=== PATIENT | male | born 1945 | race Hispanic/Latino ===

== ENCOUNTER → 2018-11-12 | Day surgery (SDC) | payer MEDICARE ==
[2018-11-11 12:34] LABS: BASOPHILS # (AUTO) 0.1 (0.0-0.1); BASOPHILS % 0.8 % (0.0-1.0); EOSINOPHILS # (AUTO) 0.2 (0.0-0.4); HEMOGLOBIN 13.3 g/dL (14.0-18.0); LYMPHOCYTES # (AUTO) 2.4 (1.0-3.2); MEAN CORPUSCULAR HEMOGLOBIN 29.2 pg (28-32); MEAN CORPUSCULAR HGB CONC 34.1 g/dL (31-35); MEAN CORPUSCULAR VOLUME 85.7 fL (81-99); MONOCYTES # (AUTO) 0.6 (0.2-0.8); MONOCYTES % 7.2 % (4.4-11.3); NEUTROPHILS # (AUTO) 4.3 (2.1-6.9); NEUTROPHILS % 56.7 % (38.7-80.0); PLATELET COUNT 217 x10e3/uL (140-360); RED BLOOD COUNT 4.55 x10e6/uL (4.3-5.7); RED CELL DISTRIBUTION WIDTH 13.5 % (11.7-14.4)
[2018-11-11 12:51] LABS: ANION GAP 11.4 mmol/L (8-16); CREATININE, SERUM 1.84 mg/dL (0.72-1.25); POTASSIUM 4.4 mmol/L (3.5-5.1)
[~2018-11-12] MED LIST: AMLODIPINE BESYL5 MG PO; CLOPIDOGREL75 MG PO; CRESTOR10 MG PO; FUROSEMIDE40 MG PO; ISOSORBIDE DINI20 MG PO; JANUVIA100 MG PO; LEVOTHYROXINE75 MCG PO; LISINOPRIL10 MG PO; METOPROLOL SUCC25 MG PO; MIDAZOLAM HCL 2 MG/2 ML VIAL ONE; NEXIUM40 MG PO; NOVOLOG100 UNITS1 SQ; PROPOFOL IV EMULSION 10 MG/ML 50 ML VIAL ONE; TRESIBA SQ
--- OUTSIDE RECORDS SUMMARY | 2018-11-12 05:31 | XMS REPORT ---
Author Author ANGELITA MOORE Organization [employer] Address Unknown Phone Unavailable Care Team Providers Care Cleaner Signs Name Role Phone ANGELITA MOORE CP Unavailable Allergies No Known Allergies Problems No Known Problems Medications No Known Medications Results No Known Results Summary Purpose [employer] Submission
--- OUTSIDE RECORDS SUMMARY | 2018-11-12 05:31 | XMS REPORT | Continuity of Care Document ---
Author Author [facility] Interface Address Unknown Phone Unavailable Problems Problem Status Onset Date Classification Date Reported Comments Source THYROID CANCER, SIP THYROIDECTOMY PHYS Active 02/16/2017 [facility] UNK Active 07/08/2016 [facility] POST TOTAL THYROIDECTOMY Active 07/08/2016 [facility] Stroke Resolved Problem 02/13/2018 [facility] Diabetes Resolved Problem 02/13/2018 [facility] Acid reflux Active Problem 02/13/2018 [facility] Hypertension Active Problem 02/13/2018 [facility] MALIGNANT NEOPLASM OF THYROID GLAND Active [facility] Medications Medication Details Route Status Patient Instructions Ordering Provider Order Date Source Insulin Glargine 100 UNT/ML Injectable Solution [Lantus] 25 unit, Route: SUB-Q, Drug form: SOLN, QAM, Dosing Weight 96.082, kg, Start date: 07/25/16 9:00:00 CASH RECONCILIATION SPECIALIST, Duration: 30 day, Stop date: 08/23/16 9:00:00 CASH RECONCILIATION SPECIALIST No Longer Active 07/25/2016 [facility] Benzocaine 0.2 MG/MG Oral Paste [Orabase] 1 appl, Route: TOP, BID, Start date: 07/24/16 17:00:00 CASH RECONCILIATION SPECIALIST, Duration: 30 day, Stop date: 08/23/16 9:00:00 CASH RECONCILIATION SPECIALIST Inactive 07/24/2016 [facility] Levemir FlexPen 8 unit, 0.08 mL, Route: SUB-Q, Drug form: INJ, QPM, Start date: 07/24/16 17:00:00 CASH RECONCILIATION SPECIALIST, Duration: 30 day, Stop date: 08/22/16 17:00:00 CSTNotes: Same as Levemir Do not hold insulin without contacting prescriber WASTE: F/P - Black; E - Municipal Trash Bin "single patient use only" Inactive 07/24/2016 [facility] Insulin Glargine 100 UNT/ML Injectable Solution [Lantus] 8 unit, Route: SUB-Q, QPM, Dosing Weight 96.082, kg, Start date: 07/24/16 17:00:00 CASH RECONCILIATION SPECIALIST, Duration: 30 day, Stop date: 08/22/16 17:00:00 CASH RECONCILIATION SPECIALIST Inactive 07/24/2016 [facility] benzocaine topical 10% mucous membrane gel 1 appl, Route: MUCOUS MEM, BID, Drug form: GEL, Start date: 07/24/16 11:04:00 CASH RECONCILIATION SPECIALIST, Duration: 30 day, Stop date: 08/23/16 9:00:00 CSTNotes: (Same As: Maximum Strength PM Orajel ) Inactive 07/24/2016 [facility] Levemir FlexPen 25 unit, 0.25 mL, Route: SUB-Q, Drug form: INJ, QAM, Start date: 07/24/16 10:00:00 CASH RECONCILIATION SPECIALIST, Duration: 30 day, Stop date: 08/23/16 9:00:00 CSTNotes: Same as Levemir Do not hold insulin without contacting prescriber WASTE: F/P - Black; E - Ever[employer]h Bin "single patient use only" Inactive 07/24/2016 [facility] Enoxaparin 40 mg, 0.4 mL, Route: SUB-Q, Drug form: INJ, [id number], Dosing Weight 96.082, kg, Start date: 07/24/16 10:00:00 CASH RECONCILIATION SPECIALIST, Duration: 30 day, Stop date: 08/22/16 10:00:00 CSTNotes: (Same as: Lovenox) Inactive 07/24/2016 [facility] Acetaminophen 300 MG / Codeine Phosphate 30 MG Oral Tablet [Tylenol with Codeine #3] 1 tab, PO, Q4H, PRN Pain Score 1-3, # 40 tab, 0 Refill(s) Active 07/24/2016 [facility] Magnesium Oxide 400 mg, 1 tab, Route: PO, Drug form: TAB, ONCE, Dosing Weight 96.082, kg, Start date: 07/24/16 9:04:00 CASH RECONCILIATION SPECIALIST, Stop date: 07/24/16 9:04:00 CSTNotes: (Same as: Mag-Ox 400) Magnesium oxide [id number] tamanna mental magnesium Dose=____mg magnesium oxide (___mg elemental magnesium) Inactive 07/24/2016 [facility] 24 HR Metoprolol Tartrate 25 MG Extended Release Tablet [Toprol] 25 mg, 1 tab, Route: PO, Drug form: ERTAB, Daily, Start date: 07/24/16 9:00:00 CASH RECONCILIATION SPECIALIST, Duration: 30 day, Stop date: 08/22/16 9:00:00 CSTNotes: (Same as: Toprol XL) Do Not Crush Inactive 07/24/2016 [facility] influenza virus vaccine, inactivated 0.5 mL, Route: IM, Drug Form: SUSP, Daily, Start date: 07/24/16 9:00:00 CASH RECONCILIATION SPECIALIST, Duration: 1 doses or times, Stop date: 07/24/16 9:00:00 CSTNotes: (Same as: Fluzone Quadrivalent, Fluarix Quadrivalent) For 3 years of age and older (0.5 mL IM) Shake well before use Inactive 07/24/2016 [facility] Streptococcus pneumoniae serotype 1 capsular antigen diphtheria [id number] protein conjugate vaccine / Streptococcus pneumoniae serotype 14 capsular antigen diphtheria [id number] protein conjugate vaccine / Streptococcus pneumoniae serotype 18C capsular antigen d 0.5 mL, Route: IM, Drug Form: INJ, Daily, Start date: 07/24/16 9:00:00 CASH RECONCILIATION SPECIALIST, Duration: 1 doses or times, Stop date: 07/24/16 9:00:00 CSTNotes: Lightly roll vial (DO NOT SHAKE) before administration. (Same as: Prevnar 13) Inactive 07/24/2016 [facility] Crestor 10 mg, Route: PO, Drug form: TAB, Bedtime, Dosing Weight 96.818, kg, Start date: 07/23/16 21:00:00 CASH RECONCILIATION SPECIALIST, Duration: 30 day, Stop date: 08/21/16 21:00:00 CASH RECONCILIATION SPECIALIST Inactive 07/24/2016 [facility] Lipitor 20 mg, 2 tab, Route: PO, Drug form: TAB, Bedtime, Start date: 07/23/16 21:00:00 CASH RECONCILIATION SPECIALIST, Duration: 30 day, Stop date: 08/21/16 21:00:00 CSTNotes: (Same As: Lipitor) No Longer Active 07/24/2016 [facility] Clonidine Hydrochloride 0.1 MG Oral Tablet 0.1 mg, 1 tab, Route: PO, Drug form: TAB, Q4H, Dosing Weight 96.082, kg, PRN Elevated BP, Start date: 07/23/16 19:16:00 CASH RECONCILIATION SPECIALIST, Duration: 30 day, Stop date: 08/22/16 19:15:00 CSTNotes: (Same As: Catapres) No Longer Active 07/24/2016 [facility] Isosorbide 60 mg, 2 tab, Route: PO, Drug form: ERTAB, QPM, Dosing Weight 96.818, kg, Start date: 07/23/16 17:00:00 CASH RECONCILIATION SPECIALIST, Duration: 30 day, Stop date: 08/21/16 17:00:00 CSTNotes: (Same as:Imdur) "Do Not Crush" Take on empty stomach/ full glass of water. Do not crush No Longer Active 07/23/2016 [facility] Promethazine 6.25 mg, Route: IVPB, ONCE, Dosing Weight 96.818, kg, PRN Nausea & Vomiting, Start date: 07/23/16 12:55:00 CASH RECONCILIATION SPECIALIST Inactive 07/23/2016 [facility] Ondansetron 4 mg, Route: IVP, ONCE, Dosing Weight 96.818, kg, PRN Nausea & Vomiting, Start date: 07/23/16 12:55:00 CASH RECONCILIATION SPECIALIST Inactive 07/23/2016 [facility] Diphenhydramine 12.5 mg, Route: IVP, Drug form: INJ, Q6H, Dosing Weight 96.818, kg, PRN Itching, Start date: 07/23/16 12:55:00 CASH RECONCILIATION SPECIALIST, Duration: 30 day, Stop date: 08/22/16 12:54:00 CASH RECONCILIATION SPECIALIST Inactive 07/23/2016 [facility] Meperidine 12.5 mg, Route: IVP, Q30Min, Dosing Weight 96.818, kg, PRN Other -See Comment, For shivering, Start date: 07/23/16 12:55:00 CASH RECONCILIATION SPECIALIST, Duration: 2 doses or times, Stop date: Limited # of times Inactive 07/23/2016 [facility] Naloxone 0.4 mg, Route: IVP, Q2MIN, Dosing Weight 96.818, kg, PRN Narcotic Reversal, Start date: 07/23/16 12:55:00 CASH RECONCILIATION SPECIALIST, Duration: 8 doses or times, Stop date: Limited # of times Inactive 07/23/2016 [facility] Calcium Chloride 0.0014 MEQ/ML / Potassium Chloride 0.004 MEQ/ML / Sodium Chloride 0.103 MEQ/ML / Sodium Lactate 0.028 MEQ/ML Injectable Solution 1,000 mL, Rate: 125 ml/hr, Infuse over: 8 hr, Route: IV, Dosing Weight 96.818 kg, Total Volume: 1,000, Start date: 07/23/16 12:55:00 CASH RECONCILIATION SPECIALIST, Duration: 30 day, Stop date: 08/22/16 12:54:00 CASH RECONCILIATION SPECIALIST Inactive 07/23/2016 [facility] Sodium Chloride 0.154 MEQ/ML Injectable Solution 500 mL, Rate: 125 ml/hr, Infuse over: 4 hr, Route: IV, Dosing Weight 96.818 kg, Total Volume: 500, Start date: 07/23/16 12:55:00 CASH RECONCILIATION SPECIALIST, Duration: 30 day, Stop date: 08/22/16 12:54:00 CASH RECONCILIATION SPECIALIST Inactive 07/23/2016 [facility] Oxycodone 10 mg, Route: PO, Drug form: TAB, Q4H, Dosing Weight 96.818, kg, PRN Pain Score 7-10, Start date: 07/23/16 12:55:00 CASH RECONCILIATION SPECIALIST, Duration: 30 day, Stop date: 08/22/16 12:54:00 CASH RECONCILIATION SPECIALIST Inactive 07/23/2016 [facility] Hydralazine 10 mg, Route: IVP, Q20Min, Dosing Weight 96.818, kg, PRN Elevated BP, Start date: 07/23/16 12:55:00 CASH RECONCILIATION SPECIALIST, Duration: 2 doses or times, Stop date: Limited # of times Inactive 07/23/2016 [facility] esmolol 10 mg, Route: IVP, Q5Min, Dosing Weight 96.818, kg, PRN Other -See Comment, Start date: 07/23/16 12:55:00 CASH RECONCILIATION SPECIALIST, Duration: 5 doses or times, Stop date: Limited # of times Inactive 07/23/2016 [facility] Flumazenil 0.2 mg, Route: IVP, PRN, Dosing Weight 96.818, kg, PRN Benzodiazepine Reversal, Initial dose, Start date: 07/23/16 12:55:00 CASH RECONCILIATION SPECIALIST, Duration: 30 day, Stop date: 08/22/16 12:54:00 CASH RECONCILIATION SPECIALIST Inactive 07/23/2016 [facility] Hydromorphone 0.5 mg, Route: IVP, Q5Min, Dosing Weight 96.818, kg, PRN Pain Score 7-10, Start date: 07/23/16 12:55:00 CASH RECONCILIATION SPECIALIST, Duration: 4 doses or times, Stop date: Limited # of times Inactive 07/23/2016 [facility] Labetalol 10 mg, Route: IVP, Q5Min, Dosing Weight 96.818, kg, PRN Elevated BP, Start date: 07/23/16 12:55:00 CASH RECONCILIATION SPECIALIST, Duration: 5 doses or times, Stop date: Limited # of times Inactive 07/23/2016 [facility] Acetaminophen 1,000 mg, Route: PO, Drug form: TAB, ONCE, Dosing Weight 96.818, kg, PRN Pain Score 1-3, Start date: 07/23/16 12:55:00 CASH RECONCILIATION SPECIALIST, Duration: 1 doses or times, Stop date: Limited # of times Inactive 07/23/2016 [facility] Zofran 4 mg, 2 mL, Route: IVP, Drug form: INJ, Q8H, Dosing Weight 96.818, kg, PRN Nausea, Start date: 07/23/16 12:53:00 CASH RECONCILIATION SPECIALIST, Duration: 30 day, Stop date: 08/22/16 12:52:00 CSTNotes: (Same as: Zofran) MEDICATION WASTE Product Size: 4 mg Product Wasted: ___ mg No Longer Active 07/23/2016 [facility] Acetaminophen 300 MG / Codeine Phosphate 30 MG Oral Tablet [Tylenol with Codeine #3] 1 tab, Route: PO, Drug Form: TAB, Dosing Weight 96.818, kg, Q4H, PRN Pain Score 1-3, Start date: 07/23/16 12:53:00 CASH RECONCILIATION SPECIALIST, Duration: 30 day, Stop date: 08/22/16 12:52:00 CSTNotes: Do not exceed 4gm/day of acetaminophen. (Same as: Tylenol with Codeine # 3) No Longer Active 07/23/2016 [facility] Insulin, Aspart, Human 1 unit, 0.01 mL, Route: SUB-Q, Drug form: SOLN, Bedtime, Dosing Weight 96.818, kg, PRN Blood Glucose Results, Start date: 07/23/16 12:53:00 CASH RECONCILIATION SPECIALIST, Duration: 30 day, Stop date: 08/22/16 12:52:00 CSTNotes: Roll in palms of hands gently; Do not shake vigorously. (Same as: NovoLOG) "single patient use only" WASTE: F/P - Black; E - Municipal Trash Bin Stable for 28 days at room temperature. Expires in days from Date No Longer Active 07/23/2016 [facility] Dextrose 50% Syringe 12.5 gm, 25 mL, Route: IVP, Drug Form: INJ, Dosing Weight 96.818, kg, PRN, PRN Blood Glucose Results, Start date: 07/23/16 12:53:00 CASH RECONCILIATION SPECIALIST, Duration: 30 day, Stop date: 08/22/16 12:52:00 CASH RECONCILIATION SPECIALIST No Longer Active 07/23/2016 [facility] Glucagon 1 mg, Route: IM, Drug form: PDR/INJ, PRN, Dosing Weight 96.818, kg, PRN Blood Glucose Results, Start date: 07/23/16 12:53:00 CASH RECONCILIATION SPECIALIST, Duration: 30 day, Stop date: 08/22/16 12:52:00 CASH RECONCILIATION SPECIALIST No Longer Active 07/23/2016 [facility] ePHEDrine (ANES) Route: IV, Drug form: INJ, ONCE, Stop date: 07/23/16 11:02:00 CASH RECONCILIATION SPECIALIST Inactive 07/23/2016 [facility] lidocaine (ANES) Route: IV, Drug form: INJ, ONCE, Stop date: 07/23/16 10:47:00 CASH RECONCILIATION SPECIALIST Inactive 07/23/2016 [facility] acetaminophen (ANES) Route: IV, Drug form: INJ, ONCE, Stop date: 07/23/16 10:47:00 CASH RECONCILIATION SPECIALIST Inactive 07/23/2016 [facility] midazolam (ANES) Route: IV, Drug form: SOLN, ONCE, Stop date: 07/23/16 10:42:00 CASH RECONCILIATION SPECIALIST Inactive 07/23/2016 [facility] fentaNYL (ANES) Route: IV, Drug form: INJ, ONCE, Stop date: 07/23/16 10:42:00 CASH RECONCILIATION SPECIALIST Inactive 07/23/2016 [facility] rocuronium (ANES) Route: IV, Drug form: INJ, ONCE, Stop date: 07/23/16 10:42:00 CASH RECONCILIATION SPECIALIST Inactive 07/23/2016 [facility] ceFAZolin (ANES) Route: IV, Drug form: INJ, ONCE, Stop date: 07/23/16 10:37:00 CASH RECONCILIATION SPECIALIST Inactive 07/23/2016 [facility] ondansetron (ANES) Route: IV, Drug form: INJ, ONCE, Stop date: 07/23/16 10:37:00 CASH RECONCILIATION SPECIALIST Inactive 07/23/2016 [facility] metoclopramide (ANES) Route: IV, Drug form: INJ, ONCE, Stop date: 07/23/16 10:37:00 CASH RECONCILIATION SPECIALIST Inactive 07/23/2016 [facility] propofol (ANES) Route: IV, Drug form: INJ, ONCE, Stop date: 07/23/16 10:37:00 CASH RECONCILIATION SPECIALIST Inactive 07/23/2016 [facility] LR 1000 mL INJ (ANES) Route: IV, Total Volume: 1,000, Start date: 07/23/16 9:43:00 CASH RECONCILIATION SPECIALIST, Stop date: 07/23/16 10:43:00 CASH RECONCILIATION SPECIALIST Inactive 07/23/2016 [facility] Albuterol 0.833 MG/ML / Ipratropium Mcintosh 0.167 MG/ML Inhalant Solution 3 mL, Route: NEB, Dosing Weight 96.818, kg, ONCE, STAT, Start date: 07/23/16 9:36:00 CASH RECONCILIATION SPECIALIST, Stop date: 07/23/16 9:36:00 CASH RECONCILIATION SPECIALIST Inactive 07/23/2016 [facility] Sodium Chloride 0.154 MEQ/ML Injectable Solution 500 mL, Rate: 25 ml/hr, Infuse over: 20 hr, Route: IV, Dosing Weight 96.818 kg, Total Volume: 500, Start date: 07/23/16 9:36:00 CASH RECONCILIATION SPECIALIST, Duration: 30 day, Stop date: 08/22/16 9:35:00 CASH RECONCILIATION SPECIALIST Inactive 07/23/2016 [facility] Calcium Chloride 0.0014 MEQ/ML / Potassium Chloride 0.004 MEQ/ML / Sodium Chloride 0.103 MEQ/ML / Sodium Lactate 0.028 MEQ/ML Injectable Solution 1,000 mL, Rate: 25 ml/hr, Infuse over: 40 hr, Route: IV, Dosing Weight 96.818 kg, Total Volume: 1,000, Start date: 07/23/16 9:36:00 CASH RECONCILIATION SPECIALIST, Duration: 30 day, Stop date: 08/22/16 9:35:00 CASH RECONCILIATION SPECIALIST Inactive 07/23/2016 [facility] Insulin Glargine 100 UNT/ML Injectable Solution [Lantus] 25 units in am, 8 units in pm, subQ, 0 Refill(s) Active 07/10/2016 [facility] lisinopril 10 mg oral tablet 10 mg=1 tab, PO, Daily, 0 Refill(s) Active 07/10/2016 [facility] metoprolol 25 mg oral tablet, extended release 25 mg=1 tab, PO, QAM, 0 Refill(s) Active 07/10/2016 [facility] sitagliptin 100 MG Oral Tablet [Januvia] 100 mg=1 tab, PO, Daily, 0 Refill(s) Active 07/10/2016 [facility] isosorbide mononitrate 60 mg oral tablet, extended release 60 mg=1 tab, PO, QPM, 0 Refill(s) Active 07/10/2016 [facility] Rosuvastatin calcium 10 MG Oral Tablet [Crestor] 10 mg=1 tab, PO, Bedtime, 0 Refill(s) Active 07/10/2016 [facility] Glipizide 5 MG Oral Tablet 5 mg=1 tab, PO, Daily, 0 Refill(s) Active 07/10/2016 [facility] Allergies, Adverse Reactions, Alerts Substance Category Reaction Severity Reaction type Status Date Reported Comments Source Immunizations Immunization Date Given Site Status Last Updated Comments Source pneumococcal 13-valent vaccine 07/24/2016 [facility], [facility] [facility] Results Order Name Results Value Reference Range Date Interpretation Comments Source Spine lumbar series DX Spine lumbar series DX EXAMINATION: 1. Thoracic spine 3 views 2. Lumbar spine series 3. Sacrum/coccyx series HISTORY: - G89.29 Other chronic pain; thoracic, lumbar, and sacral/coccygeal pain; thoracic degenerative disc disease; lumbar spondylosis FINDINGS: Frontal, lateral, and swimmer's views of the thoracic spine, frontal, lateral, bilateral oblique, and coned lateral views of the lumbar spine, and 3 views of the sacrum and coccyx are performed and compared to lumbar spine radiographs dated 05/14/2012. There is minimal dextrocurvature of the thoracic spine. There is no listhesis of the thoracic spine. The thoracic vertebral body heights are normal without compression fracture. There is minimal to mild multilevel degenerative disc disease of the mid to lower thoracic spine with areas of large anterior bridging osteophytes. There is no listhesis of the lumbar spine. The lumbar vertebral body heights are normal without compression fracture. There is mild L2-L3 through L3-4 and moderate L4-5 degenerative disc disease, similar to the prior examination in 2011. There are no pars interarticularis defects identified. There is suspected narrowing of the osseous central canal of the lower lumbar spine. There are no displaced fractures of the sacrum or coccyx identified. Arterial atherosclerotic calcifications are noted. IMPRESSION: 1. Minimal dextrocurvature of the thoracic spine with minimal to mild multilevel degenerative disease of the mid to lower thoracic spine including areas of large anterior bridging osteophytes. 2. Mild L2-L3 through L3-L4 and moderate L4-5 degenerative disc disease, similar to the prior examination in 2011. 3. Suspected narrowing of the osseous central canal of the lower lumbar spine. This may be further evaluated with MR examination of the lumbar spine as clinically indicated (if the patient is MR compatible). 4. No displaced fractures of the sacrum or coccyx identified. 02/10/2018 - - Read by: Anthony Jurado MD Dictated Date/time: 02/10/18 15:48 Electronically Signed by: Anthony Jurado MD 02/10/18 15:54 FINAL REPORT [facility] Spine sacrum AP/Lat DX Spine sacrum AP/Lat DX EXAMINATION: 1. Thoracic spine 3 views 2. Lumbar spine series 3. Sacrum/coccyx series HISTORY: - G89.29 Other chronic pain; thoracic, lumbar, and sacral/coccygeal pain; thoracic degenerative disc disease; lumbar spondylosis FINDINGS: Frontal, lateral, and swimmer's views of the thoracic spine, frontal, lateral, bilateral oblique, and coned lateral views of the lumbar spine, and 3 views of the sacrum and coccyx are performed and compared to lumbar spine radiographs dated 05/14/2012. There is minimal dextrocurvature of the thoracic spine. There is no listhesis of the thoracic spine. The thoracic vertebral body heights are normal without compression fracture. There is minimal to mild multilevel degenerative disc disease of the mid to lower thoracic spine with areas of large anterior bridging osteophytes. There is no listhesis of the lumbar spine. The lumbar vertebral body heights are normal without compression fracture. There is mild L2-L3 through L3-4 and moderate L4-5 degenerative disc disease, similar to the prior examination in 2011. There are no pars interarticularis defects identified. There is suspected narrowing of the osseous central canal of the lower lumbar spine. There are no displaced fractures of the sacrum or coccyx identified. Arterial atherosclerotic calcifications are noted. IMPRESSION: 1. Minimal dextrocurvature of the thoracic spine with minimal to mild multilevel degenerative disease of the mid to lower thoracic spine including areas of large anterior bridging osteophytes. 2. Mild L2-L3 through L3-L4 and moderate L4-5 degenerative disc disease, similar to the prior examination in 2011. 3. Suspected narrowing of the osseous central canal of the lower lumbar spine. This may be further evaluated with MR examination of the lumbar spine as clinically indicated (if the patient is MR compatible). 4. No displaced fractures of the sacrum or coccyx identified. 02/10/2018 - - Read by: Anthony Jurado MD Dictated Date/time: 02/10/18 15:48 Electronically Signed by: Anthony Jurado MD 02/10/18 15:54 FINAL REPORT [facility] Spine thoracic 3 views DX Spine thoracic 3 views DX EXAMINATION: 1. Thoracic spine 3 views 2. Lumbar spine series 3. Sacrum/coccyx series HISTORY: - G89.29 Other chronic pain; thoracic, lumbar, and sacral/coccygeal pain; thoracic degenerative disc disease; lumbar spondylosis FINDINGS: Frontal, lateral, and swimmer's views of the thoracic spine, frontal, lateral, bilateral oblique, and coned lateral views of the lumbar spine, and 3 views of the sacrum and coccyx are performed and compared to lumbar spine radiographs dated 05/14/2012. There is minimal dextrocurvature of the thoracic spine. There is no listhesis of the thoracic spine. The thoracic vertebral body heights are normal without compression fracture. There is minimal to mild multilevel degenerative disc disease of the mid to lower thoracic spine with areas of large anterior bridging osteophytes. There is no listhesis of the lumbar spine. The lumbar vertebral body heights are normal without compression fracture. There is mild L2-L3 through L3-4 and moderate L4-5 degenerative disc disease, similar to the prior examination in 2011. There are no pars interarticularis defects identified. There is suspected narrowing of the osseous central canal of the lower lumbar spine. There are no displaced fractures of the sacrum or coccyx identified. Arterial atherosclerotic calcifications are noted. IMPRESSION: 1. Minimal dextrocurvature of the thoracic spine with minimal to mild multilevel degenerative disease of the mid to lower thoracic spine including areas of large anterior bridging osteophytes. 2. Mild L2-L3 through L3-L4 and moderate L4-5 degenerative disc disease, similar to the prior examination in 2011. 3. Suspected narrowing of the osseous central canal of the lower lumbar spine. This may be further evaluated with MR examination of the lumbar spine as clinically indicated (if the patient is MR compatible). 4. No displaced fractures of the sacrum or coccyx identified. 02/10/2018 - - Read by: Anthony Jurado MD Dictated Date/time: 02/10/18 15:48 Electronically Signed by: Anthony Jurado MD 02/10/18 15:54 FINAL REPORT CHENG Hernandez Thyroid therapy ablation NM Thyroid therapy ablation NM Thyroid therapy ablation NM CLINICAL HISTORY: - thyroid cancer. The patient is status post thyroidectomy. 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 Per the pathologist, no lymph nodes were submitted for evaluation. Preop iodine scan reveals no evidence for metastasis. COMPARISON: Recent reports from Iodine scan, and CT neck were reviewed. No images are available for direct comparison. PROCEDURE: Risks and benefits of the procedure were discussed with the patient . Language line was utilized for detailed explanation of the procedure, radiation precautions, side effects and how to mitigate them. Informed consent was obtained. The radiation precautions that the patient needs to observe for approximately the next 5-7 days were discussed at length by me and the nuclear medicine pet ct technologist. Patient's questions were answered. The patient is a good candidate for outpatient treatment. The patient voices understanding of the radiation precautions he needs to observe over the next several days. A single capsule of 100 mCi of I-131 was given orally. The patient tolerated the dose without difficulty or incident. He will be followed by Dr Mosher, as an outpatient. IMPRESSION: Successful administration of radioiodine treatment without difficulty or incident. SL: [id number] 02/19/2017 - - Read by: Sabas Rausch MD Dictated Date/time: 02/19/17 16:35 Electronically Signed by: Sabas Rausch MD 02/19/17 16:44 FINAL REPORT [facility] CHEM PANEL Phosphorus 3.1 mg/dL 2.5 - 4.5 07/23/2016 [facility] CHEM PANEL Magnesium Lvl 1.6 mg/dL 1.8 - 2.4 07/23/2016 [facility] CHEM PANEL Vitamin D3 1,25 (OH)2 18 pg/mL 07/23/2016 Result Comment: Performed At: [facility] [address] [place] [address] [id number] Cecy Álvarez MD Ph:[phone] [facility] CHEM PANEL Vitamin D 1,25 (OH)2 Total 27 pg/mL 07/23/2016 Result Comment: Reference Range: Adults: 21 - 65 [facility] CHEM PANEL Vitamin D2 1,25 (OH)2 null 07/23/2016 [facility] ELECTROLYTES AGAP 12.9 meq/L 10.0 - 20.0 07/23/2016 [facility] ELECTROLYTES B/C Ratio 14 6 - 25 07/23/2016 [facility] ELECTROLYTES Globulin 3.7 g/dL 2.7 - 4.2 07/23/2016 [facility] ELECTROLYTES A/G Ratio 1.0 0.7 - 1.6 07/23/2016 [facility] ELECTROLYTES eGFR 47 mL/min/1.73m2 07/23/2016 Result Comment: The eGFR is calculated using the CKD-EPI formula. In most young, healthy individuals the eGFR will be >90 mL/min/1.73m2. The eGFR declines with age. An eGFR of 60-89 may be normal in some populations, particularly the elderly, for whom the CKD-EPI formula has not been extensively validated. Use of the eGFR is not recommended in the following populations: Individuals with unstable creatinine concentrations, including patients and those with serious co-morbid conditions. Patients with extremes in muscle mass or diet. The data above are obtained from the National Kidney Disease Education Program (NKDEP) which additionally recommends that when the eGFR is used in patients with extremes of body mass index for purposes of drug dosing, the eGFR should be multiplied by the estimated BMI. [facility] ELECTROLYTES Calcium Lvl 8.5 mg/dL 8.5 - 10.5 07/23/2016 [facility] ELECTROLYTES Total Protein 7.3 g/dL 6.4 - 8.4 07/23/2016 [facility] ELECTROLYTES CO2 24 meq/L 24 - 32 07/23/2016 [facility] ELECTROLYTES Potassium Lvl 4.9 meq/L 3.5 - 5.1 07/23/2016 [facility] ELECTROLYTES Chloride Lvl 108 meq/L 95 - 109 07/23/2016 [facility] ELECTROLYTES Sodium Lvl 140 meq/L 135 - 145 07/23/2016 [facility] ELECTROLYTES Creatinine Lvl 1.50 mg/dL 0.50 - 1.40 07/23/2016 [facility] ELECTROLYTES Glucose Lvl 161 mg/dL 70 - 99 07/23/2016 [facility] ELECTROLYTES BUN 21 mg/dL 7 - 22 07/23/2016 [facility] ELECTROLYTES Bili Total 0.4 mg/dL 0.2 - 1.3 07/23/2016 [facility] ELECTROLYTES ALT 36 unit/L 0 - 65 07/23/2016 [facility] ELECTROLYTES AST 39 unit/L 0 - 37 07/23/2016 [facility] ELECTROLYTES Alk Phos 92 unit/L 39 - 136 07/23/2016 [facility] ELECTROLYTES Albumin Lvl 3.6 g/dL 3.5 - 5.0 07/23/2016 [facility] HEMATOLOGY Platelet 152 K/CMM 133 - 450 07/23/2016 [facility] HEMATOLOGY MPV 9.6 fL 7.4 - 10.4 07/23/2016 [facility] HEMATOLOGY RDW 14.8 % 11.5 - 14.5 07/23/2016 [facility] HEMATOLOGY MCV 84.0 fL 80.0 - 94.0 07/23/2016 [facility] HEMATOLOGY Hct 39.3 % 42.0 - 54.0 07/23/2016 [facility] HEMATOLOGY Hgb 12.9 g/dL 14.0 - 18.0 07/23/2016 [facility] HEMATOLOGY RBC 4.67 M/CMM 4.70 - 6.10 07/23/2016 [facility] HEMATOLOGY WBC 14.6 K/CMM 3.7 - 10.4 07/23/2016 [facility] HEMATOLOGY MCHC 32.9 g/dL 32.0 - 36.0 07/23/2016 [facility] HEMATOLOGY MCH 27.7 pg 27.0 - 31.0 07/23/2016 [facility] PARATHYROID PROFILE Ca Norm WB 1.06 mMol/L 1.05 - 1.25 07/23/2016 [facility] PARATHYROID PROFILE Ca Ion WB 1.07 mMol/L 1.05 - 1.25 07/23/2016 [facility] PARATHYROID PROFILE PTH Intact 58.5 pg/mL 11.1 - 79.5 07/23/2016 [facility] CHEM PANEL Glucose Lvl 281 mg/dL 70 - 99 07/10/2016 [facility] CHEM PANEL Creatinine Lvl 1.60 mg/dL 0.50 - 1.40 07/10/2016 [facility] CHEM PANEL BUN 19 mg/dL 7 - 22 07/10/2016 [facility] CHEM PANEL AGAP 10.8 meq/L 10.0 - 20.0 07/10/2016 [facility] CHEM PANEL eGFR 43 mL/min/1.73m2 07/10/2016 Result Comment: The eGFR is calculated using the CKD-EPI formula. In most young, healthy individuals the eGFR will be >90 mL/min/1.73m2. The eGFR declines with age. An eGFR of 60-89 may be normal in some populations, particularly the elderly, for whom the CKD-EPI formula has not been extensively validated. Use of the eGFR is not recommended in the following populations: Individuals with unstable creatinine concentrations, including patients and those with serious co-morbid conditions. Patients with extremes in muscle mass or diet. The data above are obtained from the National Kidney Disease Education Program (NKDEP) which additionally recommends that when the eGFR is used in patients with extremes of body mass index for purposes of drug dosing, the eGFR should be multiplied by the estimated BMI. [facility] CHEM PANEL Chloride Lvl 105 meq/L 95 - 109 07/10/2016 [facility] CHEM PANEL Potassium Lvl 4.8 meq/L 3.5 - 5.1 07/10/2016 [facility] CHEM PANEL Calcium Lvl 8.2 mg/dL 8.5 - 10.5 07/10/2016 [facility] CHEM PANEL CO2 27 meq/L 24 - 32 07/10/2016 [facility] CHEM PANEL Sodium Lvl 138 meq/L 135 - 145 07/10/2016 [facility] Foot 3 views bilateral DX Foot 3 views bilateral DX CLINICAL HISTORY: pain AGE: 70 years GENDER: Male TECHNIQUE: Bilateral foot radiographs, 3 views each. COMPARISON: None FINDINGS: Right foot: There is no evidence of fracture or dislocation. Mild degenerative changes in the dorsal midfoot.. No cortical or erosion or periosteal reaction. The Lisfranc articulation is normally aligned.. There is mild plantar calcaneal heel spurring. Vascular calcifications are seen in the soft tissues about the foot and ankle. Left foot: There is no evidence of fracture or dislocation. Osseous mineralization is within normal limits. No cortical or erosion or periosteal reaction. The Lisfranc articulation is normally aligned.. There is extensive heterotopic ossification along the plantar calcaneus compatible with plantar calcaneal heel spurring. This measures 1.5 cm. Vascular calcifications are seen in the soft tissues of the foot. IMPRESSION: Marked plantar calcaneal heel spurring on the left with mild plantar calcaneal heel spurring on the right 07/10/2016 - - Read by: Ashvin Soto MD Dictated Date/time: 07/10/16 13:39 Electronically Signed by: Ashvin Soto MD 07/10/16 14:[address] [place] Vital Sign[facility] Vital Sign Value Date Comments Source Systolic (mm Hg) 135 07/24/2016 [facility] Diastolic (mm Hg) 74 07/24/2016 [facility] Heart Rate 69 07/24/2016 [facility] Heart Rate 73 07/24/2016 [facility] Systolic (mm Hg) 162 07/24/2016 [facility] Diastolic (mm Hg) 76 07/24/2016 [facility] Heart Rate 76 07/24/2016 [facility] Temperature Oral (F) 97.8 F 07/24/2016 [facility] Respitory Rate 18 07/24/2016 [facility] Systolic (mm Hg) 168 07/24/2016 [facility] Diastolic (mm Hg) 78 07/24/2016 [facility] Temperature Oral (F) 98.3 F 07/24/2016 [facility] Temperature Oral (F) 98.1 F 07/24/2016 [facility] Height 165 cm 07/23/2016 [facility] Weight 96.082 07/23/2016 [facility] BMI Calculated 35.29 07/23/2016 [facility] Respitory Rate 16 07/23/2016 [facility] Respitory Rate 8 07/23/2016 [facility] BMI Calculated 35.52 07/10/2016 [facility] Height 165.1 cm 07/10/2016 [facility] Weight 96.818 07/10/2016 [facility] Encounters Location Location Details Encounter Type Encounter Number Reason For Visit Attending Provider ADM Date DC Date Status Source [facility] [place] [facility] [id number] Blaise Winter 07/10/2016 [facility]11[facility] [id number] Christopher Spencer 07/23/2016 07/24/2016 [facility] Outpatient [id number] Angel Luis Mosher 02/19/2017 02/20/2017 [facility] [place] [facility] [id number] Blaise Winter 02/10/2018 02/11/2018 CHENG Hernandez Procedures Procedure Code Date Perfomer Comments Source Cholecystectomy [id number] [facility] [place] Ch[facility] [id number] [facility]
--- OUTSIDE RECORDS SUMMARY | 2018-11-12 05:31 | XMS REPORT ---
Author [facility] Address Unknown Phone Unavailable Care Team Providers Care Hash Slinger Name Role Phone Unavailable Unavailable Payers Payer Name Policy Type Policy Number Effective Date Expiration Date Problems This patient has no known problems. Allergies, Adverse Reactions, Alerts Allergy Name Allergy Type Status Severity Reaction(s) Onset Date Inactive Date Treating Clinician Comments No Known Allergies DA Active U 2018-10-22 00:00:00 No Known Allergies DA Active U 2015-01-23 00:00:00 Medications This patient has no known medications. Results Test Description Test Time Test Comments Text Results Atomic Results Result Comments GLUBED 2018-10-22 08:10:00 GLUBED (test code=GLUBED) 93 mg/dL 74-106 Performed by certified underground heavy equipment operator at [facility] COMPREHENSIVE METABOLIC [id number] 11:48:00* Test Item Value Reference Range Comments SODIUM (test code=NA) 139 mmol/L 136-145 POTASSIUM (test code=K) 4.5 mmol/L 3.5-5.1 CHLORIDE (test code=CL) 113.0 mmol/L 98-107 CARBON DIOXIDE (test code=CO2) 19.0 mmol/L 21-32 ANION GAP (test code=GAP) 11.5 10-20 GLUCOSE (test code=GLU) 90 mg/dL 74-106 BLOOD UREA NITROGEN (test code=BUN) 20 mg/dL 7-18 GLOMERULAR FILTRATION RATE (test code=GFR) 46 mL/min >=60 Estimated GFR by using Modified MDRD formula.Chronic kidney disease is defined as either kidney damageor GFR <60 mL/min/1.73 m2 for >3 months. CREATININE (test code=CREAT) 1.50 mg/dL 0.7-1.3 BUN/CREATININE RATIO (test code=BUN/CREA) 13.4 10-20 TOTAL PROTEIN (test code=PROT) 7.2 gram/dL 6.4-8.2 ALBUMIN (test code=ALB) 3.1 g/dL 3.4-5.0 GLOBULIN (test code=GLOB) 4.1 gram/dL 2.7-4.2 ALBUMIN/GLOBULIN RATIO (test code=A/G) 0.8 0.75-1.50 CALCIUM (test code=CA) 8.3 mg/dL 8.5-10.1 BILIRUBIN TOTAL (test code=BILT) 0.40 mg/dL 0.0-1.0 SGOT/AST (test code=AST) 16 IUnit/L 15-37 SGPT/ALT (test code=ALT) 16 IUnit/L 12-78 ALKALINE PHOSPHATASE TOTAL (test code=ALKP) 108 IUnit/L 45-117 Note change in reference range due to change in reagent. CBC W/AUTO [id number] 10:56:00* Test Item Value Reference Range Comments WHITE BLOOD CELL (test code=WBC) 8.1 K/mm3 4.5-12.5 RED BLOOD CELL (test code=RBC) 4.67 mill/mm3 4.0-5.8 HEMOGLOBIN (test code=HGB) 13.4 gram/dL 13.0-17.5 HEMATOCRIT (test code=HCT) 41.4 % 42.0-52.0 MEAN CELL VOLUME (test code=MCV) 88.7 fL 80-98 MEAN CELL HGB (test code=MCH) 28.7 picogram 27.0-33.0 MEAN CELL HGB CONCETRATION (test code=MCHC) 32.4 gram/dL 33.0-36.0 RED CELL DISTRIBUTION WIDTH (test code=RDW) 13.9 % 11.6-16.2 RED CELL DISTRIBUTION WIDTH SD (test code=RDW-SD) 44.8 fL 37.0-51.0 PLATELET COUNT (test code=PLT) 219 K/mm3 150-450 MEAN PLATELET VOLUME (test code=MPV) 9.9 fL 6.7-11.0 NEUTROPHIL % (test code=NT%) 60.9 % 39.0-69.0 IMMATURE GRANULOCYTE % (test code=IG%) 0.5 % 0.0-5.0 LYMPHOCYTE % (test code=LY%) 27.6 % 25.0-55.0 MONOCYTE % (test code=MO%) 7.7 % 0.0-10.0 EOSINOPHIL % (test code=EO%) 2.7 % 0.0-5.0 BASOPHIL % (test code=BA%) 0.6 % 0.0-1.0 NUCLEATED RBC % (test code=NRBC%) 0.0 % 0-0 NEUTROPHIL # (test code=NT#) 4.90 K/mm3 1.8-7.7 IMMATURE GRANULOCYTE # (test code=IG#) 0.04 x10 3/uL 0-0.03 LYMPHOCYTE # (test code=LY#) 2.22 K/mm3 1.0-5.0 MONOCYTE # (test code=MO#) 0.62 K/mm3 0-0.8 EOSINOPHIL # (test code=EO#) 0.22 K/mm3 0.0-0.5 BASOPHIL # (test code=BA#) 0.05 K/mm3 0.0-0.2 NUCLEATED RBC # (test code=NRBC#) 0.00 K/mm3 0.0-0.1 MANUAL DIFF REQUIRED (test code=MDIFF) NO CBC W/AUTO [id number] 10:54:00* Test Item Value Reference Range Comments WHITE BLOOD CELL (test code=WBC) K/mm3 4.5-12.5 RED BLOOD CELL (test code=RBC) mill/mm3 4.0-5.8 HEMOGLOBIN (test code=HGB) 13.4 gram/dL 13.0-17.5 HEMATOCRIT (test code=HCT) % 42.0-52.0 MEAN CELL VOLUME (test code=MCV) fL 80-98 MEAN CELL HGB (test code=MCH) picogram 27.0-33.0 MEAN CELL HGB CONCETRATION (test code=MCHC) gram/dL 33.0-36.0 RED CELL DISTRIBUTION WIDTH (test code=RDW) % 11.6-16.2 RED CELL DISTRIBUTION WIDTH SD (test code=RDW-SD) fL 37.0-51.0 PLATELET COUNT (test code=PLT) K/mm3 150-450 MEAN PLATELET VOLUME (test code=MPV) fL 6.7-11.0 NEUTROPHIL % (test code=NT%) % 39.0-69.0 IMMATURE GRANULOCYTE % (test code=IG%) % 0.0-5.0 LYMPHOCYTE % (test code=LY%) % 25.0-55.0 MONOCYTE % (test code=MO%) % 0.0-10.0 EOSINOPHIL % (test code=EO%) % 0.0-5.0 BASOPHIL % (test code=BA%) % 0.0-1.0 NEUTROPHIL # (test code=NT#) K/mm3 1.8-7.7 LYMPHOCYTE # (test code=LY#) K/mm3 1.0-5.0 MONOCYTE # (test code=MO#) K/mm3 0-0.8 EOSINOPHIL # (test code=EO#) K/mm3 0.0-0.5 BASOPHIL # (test code=BA#) K/mm3 0.0-0.2
--- OUTSIDE RECORDS SUMMARY | 2018-11-12 05:31 | XMS REPORT | Summary of Care ---
Author Author [facility] [place] Organization [facility] [place] Address Unknown Phone Unavailable Encounter HQ Aydinntr_demetris(FIN) [id number] Date(s): 07/10/16 - 07/10/16 [facility] [place] [address] [place] [phone] Discharge Disposition: Home or Self Care Attending Physician: Blaise Winter MD Vital Signs No data available for this section Problem List Condition Effective Dates Status Health Status Informant Stroke(Confirmed) Resolved Diabetes(Confirmed) Resolved Acid Active reflux(Confirmed) Hypertension(Confirm Active ed) Allergies, Adverse Reactions, Alerts Substance Reaction Severity Status NKDA Active Medications No data available for this section Results No data available for this section Immunizations No data available for this section Procedures Procedure Date Related Diagnosis Body Site Cholecystectomy Social History Social History Type Response Substance Abuse Use: None. Alcohol Never Smoking Status Never smoker; Exposure to Tobacco Smoke None; Cigarette Smoking Last 365 Days No; Reg Smoking Cessation Counseling No Assessment and Plan No data available for this section
--- OUTSIDE RECORDS SUMMARY | 2018-11-12 05:31 | XMS REPORT | Summary of Care ---
Author Author [facility] [place] Organization [facility] [place] Address Unknown Phone Unavailable Encounter HQ Robby(FIN) [id number] Date(s): 02/10/18 - 02/10/18 [facility] [place] [address] [place] [phone] Discharge Disposition: Home or Self Care Attending Physician: Blaise Winter MD Vital Signs No data available for this section Problem List Condition Effective Dates Status Health Status Informant Stroke(Confirmed) Resolved Diabetes(Confirmed) Resolved Acid Active reflux(Confirmed) Hypertension(Confirm Active ed) Allergies, Adverse Reactions, Alerts Substance Reaction Severity Status NKDA Active Medications No data available for this section Results No data available for this section Immunizations Not Given Vaccine Date Status Refusal Reason pneumococcal 13-valent vaccine 07/24/16 Not Given Patient Refuses influenza virus vaccine, inactivated 07/24/16 Not Given Patient Refuses Procedures Procedure Date Related Diagnosis Body Site Status Cholecystectomy Completed Social History Social History Type Response Substance Abuse Use: None. Alcohol Never Smoking Status Never smoker; Exposure to Tobacco Smoke None; Cigarette Smoking Last 365 Days No; Reg Smoking Cessation Counseling No entered on: 07/23/16 Assessment and Plan No data available for this section
--- OUTSIDE RECORDS SUMMARY | 2018-11-12 05:31 | XMS REPORT | Summary of Care ---
Author Author [facility] Organization [facility] Address Unknown Phone Unavailable Encounter HQ Nora_demetris(FIN) [id number] Date(s): 02/19/17 - 02/19/17 [facility] [address] [place] [address]- Discharge Disposition: Home or Self Care Attending Physician: Angel Luis Mosher MD Referring Physician: Angel Luis Mosher MD Vital Signs No data available for this section Problem List Condition Effective Dates Status Health Status Informant Stroke(Confirmed) Resolved Diabetes(Confirmed) Resolved Acid Active reflux(Confirmed) Hypertension(Confirm Active ed) Allergies, Adverse Reactions, Alerts Substance Reaction Severity Status NKDA Active Medications No data available for this section Results No data available for this section Immunizations Not Given Vaccine Date Status Refusal Reason influenza virus vaccine, inactivated 07/24/16 Not Given Patient Refuses pneumococcal 13-valent vaccine 07/24/16 Not Given Patient Refuses Procedures Procedure Date Related Diagnosis Body Site Cholecystectomy Social History Social History Type Response Substance Abuse Use: None. Alcohol Never Smoking Status Never smoker; Exposure to Tobacco Smoke None; Cigarette Smoking Last 365 Days No; Reg Smoking Cessation Counseling No Assessment and Plan No data available for this section
--- OUTSIDE RECORDS SUMMARY | 2018-11-12 05:31 | XMS REPORT | Summary of Care ---
Author Author [facility] Organization [facility] Address Unknown Phone Unavailable Encounter CLIF Bustamante(DIVYA) [id number] Date(s): 07/23/16 - 07/24/16 [facility] [address] [place] [address]- [phone] Discharge Disposition: Home or Self Care Attending Physician: Ronan Spencer MD Admitting Physician: Ronan Spencer MD Referring Physician: Ramon Dennison MD Vital Signs 1 2 3 Most recent to oldest [Reference Range]: 165 cm (07/23/16 5:34 PM) 165.1 cm (07/10/16 11:27 AM) Height 97.8 DegF (07/24/16 12:00 PM) 98.3 DegF (07/24/16 7:30 AM) 98.1 DegF (07/24/16 4:15 AM) Temperature Oral [96.4-99.1 DegF] 135/74 mmHg (07/24/16 3:32 PM) 162/76 mmHg *HI* (07/24/16 2:27 PM) 168/78 mmHg *HI* (07/24/16 12:00 PM) Blood Pressure [90-140/60-90 mmHg] 18 BRMIN (07/24/16 12:00 PM) 16 BRMIN (07/23/16 1:30 PM) 8 BRMIN *LOW* (07/23/16 1:15 PM) Respiratory Rate [14-20 BRMIN] 69 bpm (07/24/16 3:32 PM) 73 bpm (07/24/16 2:27 PM) 76 bpm (07/24/16 12:00 PM) Peripheral Pulse Rate [60-100 bpm] 96.082 kg (07/23/16 5:34 PM) 96.818 kg (07/10/16 11:27 AM) Weight 35.29 m2 (07/23/16 5:34 PM) 35.52 m2 (07/10/16 11:27 AM) Body Mass Index Problem List Condition Effective Dates Status Health Status Informant Stroke(Confirmed) Resolved Diabetes(Confirmed) Resolved Acid Active reflux(Confirmed) Hypertension(Confirm Active ed) Allergies, Adverse Reactions, Alerts Substance Reaction Severity Status NKDA Active Medications acetaminophen (ANES) Route: IV, Drug form: INJ, ONCE, Stop date: 07/23/16 10:47:00 CULINARY ARTS TEACHER Start Date: 07/23/16 Stop Date: 07/23/16 Status: Completed albuterol-ipratropium 2.5-0.5 mg inhalation solution 3 mL, Route: NEB, Dosing Weight 96.818, kg, ONCE, STAT, Start date: 07/23/16 9:3 6:00 CULINARY [employer]S TEACHER, Stop date: 07/23/16 9:36:00 CULINARY [employer]S TEACHER Start Date: 07/23/16 Stop Date: 07/23/16 Status: Discontinued ANES acetaminophen 1,000 mg, Route: PO, Drug form: TAB, ONCE, Dosing Weight 96.818, kg, PRN Pain Sc ore 1-3, Start date: 07/23/16 12:55:00 CULINARY [employer]S TEACHER, Duration: 1 doses or times, Stop ronan e: Limited # of times Start Date: 07/23/16 Stop Date: 07/23/16 Status: Discontinued ANES diphenhydrAMINE 12.5 mg, Route: IVP, Drug form: INJ, Q6H, Dosing Weight 96.818, kg, PRN Itching, Start date: 07/23/16 12:55:00 CULINARY ARTS TEACHER, Duration: 30 day, Stop date: 08/22/16 12:54: 00 CULINARY ARTS TEACHER Start Date: 07/23/16 Stop Date: 07/23/16 Status: Discontinued ANES esmolol 10 mg, Route: IVP, Q5Min, Dosing Weight 96.818, kg, PRN Other -See Comment, Star t date: 07/23/16 12:55:00 CULINARY [employer]S TEACHER, Duration: 5 doses or times, Stop date: Limited # of times Start Date: 07/23/16 Stop Date: 07/23/16 Status: Discontinued ANES flumazenil 0.2 mg, Route: IVP, PRN, Dosing Weight 96.818, kg, PRN Benzodiazepine Reversal, Initial dose, Start date: 07/23/16 12:55:00 CULINARY ARTS TEACHER, Duration: 30 day, Stop date: 12:54:00 CULINARY ARTS TEACHER Start Date: 07/23/16 Stop Date: 07/23/16 Status: Discontinued ANES hydrALAZINE 10 mg, Route: IVP, Q20Min, Dosing Weight 96.818, kg, PRN Elevated BP, Start date : 07/23/16 12:55:00 CULINARY ARTS TEACHER, Duration: 2 doses or times, Stop date: Limited # of devika es Start Date: 07/23/16 Stop Date: 07/23/16 Status: Discontinued ANES HYDROmorphone 0.5 mg, Route: IVP, Q5Min, Dosing Weight 96.818, kg, PRN Pain Score 7-10, Start date: 07/23/16 12:55:00 CULINARY ARTS TEACHER, Duration: 4 doses or times, Stop date: Limited # of times Start Date: 07/23/16 Stop Date: 07/23/16 Status: Discontinued ANES labetalol 10 mg, Route: IVP, Q5Min, Dosing Weight 96.818, kg, PRN Elevated BP, Start date: 07/23/16 12:55:00 CULINARY ARTS TEACHER, Duration: 5 doses or times, Stop date: Limited # of times Start Date: 07/23/16 Stop Date: 07/23/16 Status: Discontinued ANES meperidine 12.5 mg, Route: IVP, Q30Min, Dosing Weight 96.818, kg, PRN Other -See Comment, F or shivering, Start date: 07/23/16 12:55:00 CULINARY ARTS TEACHER, Duration: 2 doses or times, Sto p date: Limited # of times Start Date: 07/23/16 Stop Date: 07/23/16 Status: Discontinued ANES naloxone 0.4 mg, Route: IVP, Q2MIN, Dosing Weight 96.818, kg, PRN Narcotic Reversal, Star t date: 07/23/16 12:55:00 CULINARY ARTS TEACHER, Duration: 8 doses or times, Stop date: Limited # of times Start Date: 07/23/16 Stop Date: 07/23/16 Status: Discontinued ANES ondansetron 4 mg, Route: IVP, ONCE, Dosing Weight 96.818, kg, PRN Nausea & Vomiting, Start date: 07/23/16 12:55:00 CULINARY ARTS TEACHER Start Date: 07/23/16 Stop Date: 07/23/16 Status: Discontinued ANES oxyCODONE 10 mg, Route: PO, Drug form: TAB, Q4H, Dosing Weight 96.818, kg, PRN Pain Score 7-10, Start date: 07/23/16 12:55:00 CULINARY [employer]S TEACHER, Duration: 30 day, Stop date: 08/22/16 1 2:54:00 CULINARY ARTS TEACHER Start Date: 07/23/16 Stop Date: 07/23/16 Status: Discontinued ANES oxyCODONE 5 mg, Route: PO, Drug form: TAB, Q4H, Dosing Weight 96.818, kg, PRN Pain Score 4 -6, Start date: 07/23/16 12:55:00 CULINARY ARTS TEACHER, Duration: 30 day, Stop date: 08/22/16 12: 54:00 CULINARY [employer]S TEACHER Start Date: 07/23/16 Stop Date: 07/23/16 Status: Discontinued ANES promethazine 6.25 mg, Route: IVPB, ONCE, Dosing Weight 96.818, kg, PRN Nausea & Vomiting, Start date: 07/23/16 12:55:00 CULINARY [employer]S TEACHER Start Date: 07/23/16 Stop Date: 07/23/16 Status: Discontinued benzocaine topical 10% mucous membrane gel 1 appl, Route: MUCOUS MEM, BID, Drug form: GEL, Start date: 07/24/16 11:04:00 CS T, Duration: 30 day, Stop date: 08/23/16 9:00:00 CULINARY [employer]S TEACHER Notes: (Same As: Maximum Strength PM Orajel ) Start Date: 07/24/16 Stop Date: 07/24/16 Status: Discontinued ceFAZolin (ANES) Route: IV, Drug form: INJ, ONCE, Stop date: 07/23/16 10:37:00 CULINARY [employer]S TEACHER Start Date: 07/23/16 Stop Date: 07/23/16 Status: Completed cloNIDine 0.1 mg oral tablet 0.1 mg, 1 tab, Route: PO, Drug form: TAB, Q4H, Dosing Weight 96.082, kg, PRN Wilma vated BP, Start date: 07/23/16 19:16:00 CULINARY ARTS TEACHER, Duration: 30 day, Stop date: 19:15:00 CULINARY ARTS TEACHER Notes: (Same As: Catapres) Start Date: 07/23/16 Stop Date: 07/24/16 Status: Discontinued Crestor 10 mg, Route: PO, Drug form: TAB, Bedtime, Dosing Weight 96.818, kg, Start date: 07/23/16 21:00:00 CULINARY ARTS TEACHER, Duration: 30 day, Stop date: 08/21/16 21:00:00 CULINARY ARTS TEACHER Start Date: 07/23/16 Stop Date: 07/23/16 Status: Deleted Crestor 10 mg oral tablet 10 mg=1 tab, PO, Bedtime, 0 Refill(s) Start Date: 07/10/16 Status: Ordered Dextrose 50% Syringe 12.5 gm, 25 mL, Route: IVP, Drug Form: INJ, Dosing Weight 96.818, kg, PRN, PRN B lood Glucose Results, Start date: 07/23/16 12:53:00 CULINARY [employer]S TEACHER, Duration: 30 day, Stop date: 08/22/16 12:52:00 CULINARY ARTS TEACHER Start Date: 07/23/16 Stop Date: 07/24/16 Status: Discontinued Dextrose 50% Syringe 25 gm, 50 mL, Route: IVP, Drug Form: INJ, Dosing Weight 96.818, kg, PRN, PRN Blo od Glucose Results, Start date: 07/23/16 12:53:00 CULINARY [employer]S TEACHER, Duration: 30 day, Stop da te: 08/22/16 12:52:00 CULINARY ARTS TEACHER Start Date: 07/23/16 Stop Date: 07/24/16 Status: Discontinued enoxaparin 40 mg, 0.4 mL, Route: SUB-Q, Drug form: INJ, [id number], Dosing Weight 96.082, kg, Start date: 07/24/16 10:00:00 CULINARY ARTS TEACHER, Duration: 30 day, Stop date: 08/22/16 10:00: 00 CULINARY ARTS TEACHER Notes: (Same as: Lovenox) Start Date: 07/24/16 Stop Date: 07/24/16 Status: Discontinued ePHEDrine (ANES) Route: IV, Drug form: INJ, ONCE, Stop date: 07/23/16 11:02:00 CULINARY ARTS TEACHER Start Date: 07/23/16 Stop Date: 07/23/16 Status: Completed fentaNYL (ANES) Route: IV, Drug form: INJ, ONCE, Stop date: 07/23/16 10:42:00 CULINARY ARTS TEACHER Start Date: 07/23/16 Stop Date: 07/23/16 Status: Completed glipiZIDE 5 mg oral tablet 5 mg=1 tab, PO, Daily, 0 Refill(s) Start Date: 07/10/16 Status: Ordered glucagon 1 mg, Route: IM, Drug form: PDR/INJ, PRN, Dosing Weight 96.818, kg, PRN Blood Gl ucose Results, Start date: 07/23/16 12:53:00 CULINARY ARTS TEACHER, Duration: 30 day, Stop date: 10/23/15 12:52:00 CULINARY ARTS TEACHER Start Date: 07/23/16 Stop Date: 07/24/16 Status: Discontinued influenza virus vaccine, inactivated 0.5 mL, Route: IM, Drug Form: SUSP, Daily, Start date: 07/24/16 9:00:00 CULINARY ARTS TEACHER, Dur ation: 1 doses or times, Stop date: 07/24/16 9:00:00 CULINARY ARTS TEACHER Notes: (Same as: Fluzone Quadrivalent, Fluarix Quadrivalent)For 3 years of age a nd older (0.5 mL IM)Shake well before use Start Date: 07/24/16 Stop Date: 07/24/16 Status: Completed insulin aspart 1 unit, 0.01 mL, Route: SUB-Q, Drug form: SOLN, Bedtime, Dosing Weight 96.818, k g, PRN Blood Glucose Results, Start date: 07/23/16 12:53:00 CULINARY ARTS TEACHER, Duration: 30 da y, Stop date: 08/22/16 12:52:00 CULINARY ARTS TEACHER Notes: Roll in palms of hands gently; Do not shake vigorously. (Same as: NovoLO G)"single patient use only"WASTE: F/P - Black; E - Municipal Trash Bin Stable f or 28 days at room temperature.Expires in days from Date Start Date: 07/23/16 Stop Date: 07/24/16 Status: Discontinued insulin aspart 2 unit, 0.02 mL, Route: SUB-Q, Drug form: SOLN, Bedtime, Dosing Weight 96.818, k g, PRN Blood Glucose Results, Start date: 07/23/16 12:53:00 CULINARY ARTS TEACHER, Duration: 30 da y, Stop date: 08/22/16 12:52:00 CULINARY ARTS TEACHER Notes: Roll in palms of hands gently; Do not shake vigorously. (Same as: Karol Solorio)"single patient use only"WASTE: F/P - Black; E - Municipal Trash Bin Stable f or 28 days at room temperature.Expires in days from Date Start Date: 07/23/16 Stop Date: 07/24/16 Status: Discontinued insulin aspart 3 unit, 0.03 mL, Route: SUB-Q, Drug form: SOLN, Bedtime, Dosing Weight 96.818, k g, PRN Blood Glucose Results, Start date: 07/23/16 12:53:00 CULINARY ARTS TEACHER, Duration: 30 da y, Stop date: 08/22/16 12:52:00 CULINARY ARTS TEACHER Notes: Roll in palms of hands gently; Do not shake vigorously. (Same as: Karol Solorio)"single patient use only"WASTE: F/P - Black; E - Municipal Trash Bin Stable f or 28 days at room temperature.Expires in days from Date Start Date: 07/23/16 Stop Date: 07/24/16 Status: Discontinued insulin aspart 4 unit, 0.04 mL, Route: SUB-Q, Drug form: SOLN, Bedtime, Dosing Weight 96.818, k g, PRN Blood Glucose Results, Start date: 07/23/16 12:53:00 CULINARY ARTS TEACHER, Duration: 30 da y, Stop date: 08/22/16 12:52:00 CULINARY ARTS TEACHER Notes: Roll in palms of hands gently; Do not shake vigorously. (Same as: Karol Solorio)"single patient use only"WASTE: F/P - Black; E - Municipal Trash Bin Stable f or 28 days at room temperature.Expires in days from Date Start Date: 07/23/16 Stop Date: 07/24/16 Status: Discontinued insulin aspart 2 unit, 0.02 mL, Route: SUB-Q, Drug form: SOLN, TID-Before Meals, Dosing Weight 96.818, kg, PRN Blood Glucose Results, Start date: 07/23/16 12:53:00 CULINARY ARTS TEACHER, Durati on: 30 day, Stop date: 08/22/16 12:52:00 CULINARY ARTS TEACHER Notes: Roll in palms of hands gently; Do not shake vigorously. (Same as: NovoDAYSI Solorio)"single patient use only"WASTE: F/P - Black; E - Municipal Trash Bin Stable f or 28 days at room temperature.Expires in days from Date Start Date: 07/23/16 Stop Date: 07/24/16 Status: Discontinued insulin aspart 6 unit, 0.06 mL, Route: SUB-Q, Drug form: SOLN, TID-Before Meals, Dosing Weight 96.818, kg, PRN Blood Glucose Results, Start date: 07/23/16 12:53:00 CULINARY ARTS TEACHER, Durati on: 30 day, Stop date: 08/22/16 12:52:00 CULINARY ARTS TEACHER Notes: Roll in palms of hands gently; Do not shake vigorously. (Same as: NovoDAYSI Solorio)"single patient use only"WASTE: F/P - Black; E - Municipal Trash Bin Stable f or 28 days at room temperature.Expires in days from Date Start Date: 07/23/16 Stop Date: 07/24/16 Status: Discontinued insulin aspart 4 unit, 0.04 mL, Route: SUB-Q, Drug form: SOLN, TID-Before Meals, Dosing Weight 96.818, kg, PRN Blood Glucose Results, Start date: 07/23/16 12:53:00 CULINARY ARTS TEACHER, Durati on: 30 day, Stop date: 08/22/16 12:52:00 CULINARY ARTS TEACHER Notes: Roll in palms of hands gently; Do not shake vigorously. (Same as: NovoDAYSI Solorio)"single patient use only"WASTE: F/P - Black; E - Municipal Trash Bin Stable f or 28 days at room temperature.Expires in days from Date Start Date: 07/23/16 Stop Date: 07/24/16 Status: Discontinued insulin aspart 10 unit, 0.1 mL, Route: SUB-Q, Drug form: SOLN, TID-Before Meals, Dosing Weight 96.818, kg, PRN Blood Glucose Results, Start date: 07/23/16 12:53:00 CULINARY ARTS TEACHER, Durati on: 30 day, Stop date: 08/22/16 12:52:00 CULINARY ARTS TEACHER Notes: Roll in palms of hands gently; Do not shake vigorously. (Same as: Karol Solorio)"single patient use only"WASTE: F/P - Black; E - Municipal Trash Bin Stable f or 28 days at room temperature.Expires in days from Date Start Date: 07/23/16 Stop Date: 07/24/16 Status: Discontinued insulin aspart 8 unit, 0.08 mL, Route: SUB-Q, Drug form: SOLN, TID-Before Meals, Dosing Weight 96.818, kg, PRN Blood Glucose Results, Start date: 07/23/16 12:53:00 CULINARY ARTS TEACHER, Durati on: 30 day, Stop date: 08/22/16 12:52:00 CULINARY ARTS TEACHER Notes: Roll in palms of hands gently; Do not shake vigorously. (Same as: Karol Solorio)"single patient use only"WASTE: F/P - Black; E - Municipal Trash Bin Stable f or 28 days at room temperature.Expires in days from Date Start Date: 07/23/16 Stop Date: 07/24/16 Status: Discontinued isosorbide mononitrate 60 mg, 2 tab, Route: PO, Drug form: ERTAB, QPM, Dosing Weight 96.818, kg, Start date: 07/23/16 17:00:00 CULINARY ARTS TEACHER, Duration: 30 day, Stop date: 08/21/16 17:00:00 CULINARY ARTS TEACHER Notes: (Same as:Gretel)"Do Not Crush" Take on empty stomach/ full glass of water . Do not crush Start Date: 07/23/16 Stop Date: 07/24/16 Status: Discontinued isosorbide mononitrate 60 mg oral tablet, extended release 60 mg=1 tab, PO, QPM, 0 Refill(s) Start Date: 07/10/16 Status: Ordered Januvia 100 mg oral tablet 100 mg=1 tab, PO, Daily, 0 Refill(s) Start Date: 07/10/16 Status: Ordered Lactated Ringers Injection IV 1000 mL 1,000 mL, Rate: 25 ml/hr, Infuse over: 40 hr, Route: IV, Dosing Weight 96.818 kg , Total Volume: 1,000, Start date: 07/23/16 9:36:00 CULINARY ARTS TEACHER, Duration: 30 day, Stop date: 08/22/16 9:35:00 CULINARY ARTS TEACHER Start Date: 07/23/16 Stop Date: 07/23/16 Status: Discontinued Lactated Ringers Injection IV 1000 mL 1,000 mL, Rate: 125 ml/hr, Infuse over: 8 hr, Route: IV, Dosing Weight 96.818 kg , Total Volume: 1,000, Start date: 07/23/16 12:55:00 CULINARY ARTS TEACHER, Duration: 30 day, Stop date: 08/22/16 12:54:00 CULINARY ARTS TEACHER Start Date: 07/23/16 Stop Date: 07/23/16 Status: Discontinued Lantus 100 units/mL 25 unit, Route: SUB-Q, Drug form: SOLN, QAM, Dosing Weight 96.082, kg, Start ronan e: 07/25/16 9:00:00 CULINARY ARTS TEACHER, Duration: 30 day, Stop date: 08/23/16 9:00:00 CULINARY ARTS TEACHER Start Date: 07/25/16 Stop Date: 07/24/16 Status: Deleted Lantus 100 units/mL 8 unit, Route: SUB-Q, QPM, Dosing Weight 96.082, kg, Start date: 07/24/16 17:00: 00 CULINARY ARTS TEACHER, Duration: 30 day, Stop date: 08/22/16 17:00:00 CULINARY ARTS TEACHER Start Date: 07/24/16 Stop Date: 07/24/16 Status: Deleted Lantus 100 units/mL 25 units in am, 8 units in pm, subQ, 0 Refill(s) Start Date: 07/10/16 Status: Ordered Levemir FlexPen 25 unit, 0.25 mL, Route: SUB-Q, Drug form: INJ, QAM, Start date: 07/24/16 10:00: 00 CULINARY ARTS TEACHER, Duration: 30 day, Stop date: 08/23/16 9:00:00 CULINARY ARTS TEACHER Notes: Same as LevemirDo not hold insulin without contacting prescriberWASTE: F/ P - Black; E - Municipal Trash Bin "single patient use only" Start Date: 07/24/16 Stop Date: 07/24/16 Status: Discontinued Levemir FlexPen 8 unit, 0.08 mL, Route: SUB-Q, Drug form: INJ, QPM, Start date: 07/24/16 17:00:0 0 CULINARY ARTS TEACHER, Duration: 30 day, Stop date: 08/22/16 17:00:00 CULINARY ARTS TEACHER Notes: Same as LevemirDo not hold insulin without contacting prescriberWASTE: F/ P - Black; E - Municipal Trash Bin "single patient use only" Start Date: 07/24/16 Stop Date: 07/24/16 Status: Discontinued lidocaine (ANES) Route: IV, Drug form: INJ, ONCE, Stop date: 07/23/16 10:47:00 CULINARY ARTS TEACHER Start Date: 07/23/16 Stop Date: 07/23/16 Status: Completed Lipitor 20 mg, 2 tab, Route: PO, Drug form: TAB, Bedtime, Start date: 07/23/16 21:00:00 CULINARY ARTS TEACHER, Duration: 30 day, Stop date: 08/21/16 21:00:00 CULINARY ARTS TEACHER Notes: (Same As: Lipitor) Start Date: 07/23/16 Stop Date: 07/24/16 Status: Discontinued lisinopril 10 mg oral tablet 10 mg=1 tab, PO, Daily, 0 Refill(s) Start Date: 07/10/16 Status: Ordered LR 1000 mL INJ (ANES) Route: IV, Total Volume: 1,000, Start date: 07/23/16 9:43:00 CULINARY ARTS TEACHER, Stop date: 05/30 10:43:00 CULINARY ARTS TEACHER Start Date: 07/23/16 Stop Date: 07/23/16 Status: Completed magnesium oxide 400 mg, 1 tab, Route: PO, Drug form: TAB, ONCE, Dosing Weight 96.082, kg, Start date: 07/24/16 9:04:00 CULINARY ARTS TEACHER, Stop date: 07/24/16 9:04:00 CULINARY ARTS TEACHER Notes: (Same as: Mag-Ox 400)Magnesium oxide 951mm=543pf elemental magnesiumDose= ____mg magnesium oxide (___mg elemental magnesium) Start Date: 07/24/16 Stop Date: 07/24/16 Status: Completed metoclopramide (ANES) Route: IV, Drug form: INJ, ONCE, Stop date: 07/23/16 10:37:00 CULINARY ARTS TEACHER Start Date: 07/23/16 Stop Date: 07/23/16 Status: Completed metoprolol 25 mg oral tablet, extended release 25 mg=1 tab, PO, QAM, 0 Refill(s) Start Date: 07/10/16 Status: Ordered midazolam (ANES) Route: IV, Drug form: SOLN, ONCE, Stop date: 07/23/16 10:42:00 CULINARY ARTS TEACHER Start Date: 07/23/16 Stop Date: 07/23/16 Status: Completed ondansetron (ANES) Route: IV, Drug form: INJ, ONCE, Stop date: 07/23/16 10:37:00 CULINARY ARTS TEACHER Start Date: 07/23/16 Stop Date: 07/23/16 Status: Completed Orabase with Benzocaine 20% mucous membrane paste 1 appl, Route: TOP, BID, Start date: 07/24/16 17:00:00 CULINARY ARTS TEACHER, Duration: 30 day, St op date: 08/23/16 9:00:00 CULINARY ARTS TEACHER Start Date: 07/24/16 Stop Date: 07/24/16 Status: Deleted pneumococcal 13-valent vaccine 0.5 mL, Route: IM, Drug Form: INJ, Daily, Start date: 07/24/16 9:00:00 CULINARY ARTS TEACHER, Dura tion: 1 doses or times, Stop date: 07/24/16 9:00:00 CULINARY ARTS TEACHER Notes: Lightly roll vial (DO NOT SHAKE) before administration. (Same as: Prevna r 13) Start Date: 07/24/16 Stop Date: 07/24/16 Status: Completed propofol (ANES) Route: IV, Drug form: INJ, ONCE, Stop date: 07/23/16 10:37:00 CULINARY ARTS TEACHER Start Date: 07/23/16 Stop Date: 07/23/16 Status: Completed rocuronium (ANES) Route: IV, Drug form: INJ, ONCE, Stop date: 07/23/16 10:42:00 CULINARY ARTS TEACHER Start Date: 07/23/16 Stop Date: 07/23/16 Status: Completed Sodium Chloride 0.9% IV 500 mL 500 mL, Rate: 25 ml/hr, Infuse over: 20 hr, Route: IV, Dosing Weight 96.818 kg, Total Volume: 500, Start date: 07/23/16 9:36:00 CULINARY ARTS TEACHER, Duration: 30 day, Stop date : 08/22/16 9:35:00 CULINARY ARTS TEACHER Start Date: 07/23/16 Stop Date: 07/23/16 Status: Discontinued Sodium Chloride 0.9% IV 500 mL 500 mL, Rate: 125 ml/hr, Infuse over: 4 hr, Route: IV, Dosing Weight 96.818 kg, Total Volume: 500, Start date: 07/23/16 12:55:00 CULINARY ARTS TEACHER, Duration: 30 day, Stop ronan e: 08/22/16 12:54:00 CULINARY ARTS TEACHER Start Date: 07/23/16 Stop Date: 07/23/16 Status: Discontinued Toprol-XL 25 mg oral tablet, extended release 25 mg, 1 tab, Route: PO, Drug form: ERTAB, Daily, Start date: 07/24/16 9:00:[address], Duration: 30 day, Stop date: 08/22/16 9:00:00 CULINARY ARTS TEACHER Notes: (Same as: Toprol XL) Do Not Crush Start Date: 07/24/16 Stop Date: 07/24/16 Status: Discontinued Tylenol with Codeine #3 oral tablet 1 tab, Route: PO, Drug Form: TAB, Dosing Weight 96.818, kg, Q4H, PRN Pain Score 1-3, Start date: 07/23/16 12:53:00 CULINARY ARTS TEACHER, Duration: 30 day, Stop date: 08/22/16 12 :52:00 CULINARY ARTS TEACHER Notes: Do not exceed 4gm/day of acetaminophen. (Same as: Tylenol with Codeine # 3) Start Date: 07/23/16 Stop Date: 07/24/16 Status: Discontinued Tylenol with Codeine #3 oral tablet 1 tab, PO, Q4H, PRN Pain Score 1-3, # 40 tab, 0 Refill(s) Start Date: 07/24/16 Stop Date: 08/03/16 Status: Ordered Zofran 4 mg, 2 mL, Route: IVP, Drug form: INJ, Q8H, Dosing Weight 96.818, kg, PRN Nause a, Start date: 07/23/16 12:53:00 CULINARY ARTS TEACHER, Duration: 30 day, Stop date: 08/22/16 12:5 2:00 CULINARY ARTS TEACHER Notes: (Same as: Zoan) MEDICATION WASTE Product Size: 4 mgProduct Was madisyn: ___ mg Start Date: 07/23/16 Stop Date: 07/24/16 Status: Discontinued Results ELECTROLYTES Most recent to 1 2 oldest [Reference Range]: Sodium Lvl [135-145 140 mEq/L 138 mEq/L mEq/L] (07/23/16 3:08 PM) (07/10/16 12:16 PM) Potassium Lvl 4.9 mEq/L 4.8 mEq/L [3.5-5.1 mEq/L] (07/23/16 3:08 PM) (07/10/16 12:16 PM) Chloride Lvl [95-109 108 mEq/L 105 mEq/L mEq/L] (07/23/16 3:08 PM) (07/10/16 12:16 PM) CO2 [24-32 mEq/L] 24 mEq/L 27 mEq/L (07/23/16 3:08 PM) (07/10/16 12:16 PM) AGAP [10.0-20.0 12.9 mEq/L 10.8 mEq/L mEq/L] (07/23/16 3:08 PM) (07/10/16 12:16 PM) CHEM PANEL Most recent to 1 2 oldest [Reference Range]: Creatinine Lvl 1.50 mg/dL 1.60 mg/dL [0.50-1.40 mg/dL] *HI* *HI* (07/23/16 3:08 PM) (07/10/16 12:16 PM) eGFR 47 mL/min/1.73m2 1 43 mL/min/1.73m2 2 *NA* *NA* (07/23/16 3:08 PM) (07/10/16 12:16 PM) BUN [7-22 mg/dL] 21 mg/dL 19 mg/dL (07/23/16 3:08 PM) (07/10/16 12:16 PM) B/C Ratio [6-25] 14 (07/23/16 3:08 PM) Glucose Lvl [70-99 161 mg/dL 281 mg/dL mg/dL] *HI* *HI* (07/23/16 3:08 PM) (07/10/16 12:16 PM) Total Protein 7.3 g/dL [6.4-8.4 g/dL] (07/23/16 3:08 PM) Albumin Lvl [3.5-5.0 3.6 g/dL g/dL] (07/23/16 3:08 PM) Globulin [2.7-4.2 3.7 g/dL g/dL] (07/23/16 3:08 PM) A/G Ratio [0.7-1.6] 1.0 (07/23/16 3:08 PM) Calcium Lvl 8.5 mg/dL 8.2 mg/dL [8.5-10.5 mg/dL] (07/23/16 3:08 PM) *LOW* (07/10/16 12:16 PM) Phosphorus [2.5-4.5 3.1 mg/dL mg/dL] (07/23/16 3:08 PM) Magnesium Lvl 1.6 mg/dL [1.8-2.4 mg/dL] *LOW* (07/23/16 3:08 PM) ALT [0-65 unit/L] 36 unit/L (07/23/16 3:08 PM) AST [0-37 unit/L] 39 unit/L *HI* (07/23/16 3:08 PM) Alk Phos [39-136 92 unit/L unit/L] (07/23/16 3:08 PM) Bili Total [0.2-1.3 0.4 mg/dL mg/dL] (07/23/16 3:08 PM) Vitamin D 1,25 (OH)2 27 pg/mL 3 Total *NA* (07/23/16 3:08 PM) Vitamin D2 1,25 <10 pg/mL (OH)2 *NA* (07/23/16 3:08 PM) Vitamin D3 1,25 18 pg/mL 4 (OH)2 *NA* (07/23/16 3:08 PM) 1Result Comment: The eGFR is calculated using the [...] from the National Kid[employer] Education Program ( NKDEP) which additionally recommends that when the eGFR is used in patients with extremes of body mass index for purposes of drug dosing, the eGFR should be mul tiplied by the estimated BMI. 2Result Comment: The eGFR is calculated using the [...] from the National Kid[employer] Education Program ( NKDEP) which additionally recommends that when the eGFR is used in patients with extremes of body mass index for purposes of drug dosing, the eGFR should be mul tiplied by the estimated BMI. 3Result Comment: Reference Range: Adults: 21 - 65 4Result Comment: Performed At: [facility] [address] [place] [address] [id number] Cecy Álvarez MD Ph:[phone] PARATHYROID PROFILE Most recent to 1 2 oldest [Reference Range]: Ca Ion WB [1.05-1.25 1.07 mMol/L mMol/L] (07/23/16 3:08 PM) Ca Norm WB 1.06 mMol/L [1.05-1.25 mMol/L] (07/23/16 3:08 PM) PTH Intact 58.5 pg/mL [11.1-79.5 pg/mL] (07/23/16 3:08 PM) HEMATOLOGY Most recent to 1 2 oldest [Reference Range]: WBC [3.7-10.4 K/CMM] 14.6 K/CMM *HI* (07/23/16 3:08 PM) RBC [4.70-6.10 4.67 M/CMM M/CMM] *LOW* (07/23/16 3:08 PM) Hgb [14.0-18.0 g/dL] 12.9 g/dL *LOW* (07/23/16 3:08 PM) Hct [42.0-54.0 %] 39.3 % *LOW* (07/23/16 3:08 PM) MCV [80.0-94.0 fL] 84.0 fL (07/23/16 3:08 PM) MCH [27.0-31.0 pg] 27.7 pg (07/23/16 3:08 PM) MCHC [32.0-36.0 32.9 g/dL g/dL] (07/23/16 3:08 PM) RDW [11.5-14.5 %] 14.8 % *HI* (07/23/16 3:08 PM) Platelet [133-450 152 K/CMM K/CMM] (07/23/16 3:08 PM) MPV [7.4-10.4 fL] 9.6 fL (07/23/16 3:08 PM) Immunizations Not Given Vaccine Date Status Refusal [...]
[2018-11-12 07:45] VITALS: BP 114/72
== END | disposition home or self-care (01) ==
LOC: OR 05:27 → EDBD 07:00
PROVIDERS: ATTEND Internal Medicine Gastroenterology
DX: Z09 Encounter for follow-up examination after completed treatment for conditions other than malignant neoplasm (principal); D12.0 Benign neoplasm of cecum; D12.2 Benign neoplasm of ascending colon; D12.3 Benign neoplasm of transverse colon; D12.5 Benign neoplasm of sigmoid colon; K64.8 Other hemorrhoids; Z71.3 Dietary counseling and surveillance; E66.9 Obesity, unspecified; E11.9 Type 2 diabetes mellitus without complications; I10 Essential (primary) hypertension; E03.9 Hypothyroidism, unspecified; Z01.810 Encounter for preprocedural cardiovascular examination; Z01.812 Encounter for preprocedural laboratory examination; Z79.02 Long term (current) use of antithrombotics/antiplatelets; Z79.4 Long term (current) use of insulin; Z68.39 Body mass index [BMI] 39.0-39.9, adult; Z86.73 Personal history of transient ischemic attack (TIA), and cerebral infarction without residual deficits; Z87.442 Personal history of urinary calculi; Z90.49 Acquired absence of other specified parts of digestive tract; Z83.79 Family history of other diseases of the digestive system
CPT/HCPCS: 36415; 45385; 80048; 85025; 93005; J2250; J2704; 45378